=== PATIENT | female | born 1980 | race Two or more races ===

== ENCOUNTER 2021-02-27 10:52 | Emergency (ER) | payer SELFPAY ==
[~2021-02-27] VITALS: Ht 157.5 cm; Wt 65.8 kg
[2021-02-27 10:58] VITALS: BP 127/81
--- NOTE | 2021-02-27 12:01 | NUR ---
SPLINT APPLIED ON FINGER.
--- NOTE | 2021-02-27 12:01 | NUR ---
Patient discharged to home in stable condition. Written and verbal after care instructions given. Patient verbalizes understanding of instruction.
== END 2021-02-27 12:01 | disposition home or self-care (01) ==
LOC: ER 10:52
DX: S61.001A Unspecified open wound of right thumb without damage to nail, initial encounter (principal); W01.0XXA Fall on same level from slipping, tripping and stumbling without subsequent striking against object, initial encounter; Y93.89 Activity, other specified; Y92.89 Other specified places as the place of occurrence of the external cause; Y99.8 Other external cause status